=== PATIENT | female | born 1970 | race Caucasian/White ===

== ENCOUNTER 2017-01-11 11:23 | Emergency (ER) | payer OTHER ==
[2017-01-11 11:31] VITALS: BP 162/78
--- NOTE | 2017-01-11 12:16 | RAD ---
HISTORY: Subacute trauma, right wrist pain COMPARISONS: None VIEWS: 3, Frontal, lateral, and oblique views of the right wrist FINDINGS: BONE DENSITY: Normal. BONES: There is a transverse nondisplaced fracture of the distal radial metaphysis. There is a minimally displaced fracture of the styloid process of the ulna. JOINTS: There is no arthropathy. ALIGNMENT: There is no dislocation. SOFT TISSUES: Unremarkable. OTHER FINDINGS: None. IMPRESSION: NONDISPLACED FRACTURE OF THE DISTAL RADIAL METAPHYSIS. MINIMALLY DISPLACED FRACTURE OF THE STYLOID PROCESS OF THE ULNA.
[2017-01-11] MEDS ORDERED: HYDROcodone/ACETAMIN 5-325 MG* 1 TAB PO ONE (13:32)
--- NOTE | 2017-01-11 13:50 | UC ---
Progress - Progress Note Progress Note: PHYSICIAN PROCEDURE NOTE: SUGAR TONG SPLINT APPLICATION for right wrist distal radius and ulnar styloid fracture 3 weeks old. Cast padding applied. Ortho- glass 4 in. preformed splint material used to form sugar tong splint. Neurovasc intact before and after splint application. Pt tolerated procedure well.
--- NOTE | 2017-01-11 15:06 | UC ---
Missael Dan Angela, scribed for Renée Gonzalez, on 01/11/17 at 1226 . Upper Extremity HPI <ValdezEvelyn Rudy - Last Filed: 01/11/17 13:50> - HPI Summary HPI Summary: This pt is a 46 y/o female presenting to [facility] c/o right wrist pain s/p tripping over a puppy 3 weeks ago. Pt reports that the back steps where she lives are broken. She was bringing a puppy inside but since the steps are broken she fell and extended her right arm to catch herself. Pt states initially her right wrist was swollen and had a bruise. She notes she has been taking Advil for the pain. Pt takes medications for a thyroid disorder. pmhx hypothyroid, ra. - History of Current Complaint Hx Obtained From: Patient Hx Last Menstrual Period: depo Onset/Duration: Lasting Weeks, Still Present Severity Currently: Severe Pain Intensity: 8 Pain Scale Used: 0-10 Numeric Location Of Pain: Is Discrete @ - right wrist Alleviating Factor(s): Nothing Associated Signs And Symptoms: Positive: Swelling, Bruising. Negative: Fever, Weakness, Numbness/Tingling <Renée Gonzalez - Last Filed: 01/11/17 15:06> - History of Current Complaint Chief Complaint: UCUpperExtremity Stated Complaint: WRIST INJURY Time Seen by Provider: 01/11/17 11:45 - Allergies/Home Medications Allergies/Adverse Reactions: Allergies Allergy/AdvReac Type Severity Reaction Status Date / Time No Known Allergies Allergy Verified 01/11/17 11:31 Home Medications: Home Medications Cyanocobalamin [Vitamin B-12] 2,500 mcg PO DAILY 01/11/17 [History Confirmed ] Fluticasone NASAL * [Flonase *] 2 spr NASAL DAILY 01/11/17 [History Confirmed ] PMH/Surg Hx/FS Hx/Imm Hx - Additional Past Medical History Additional PMH: RA Endocrine History: Thyroid Disease Other Cardiovascular History: DENIES: HTN - Surgical History Surgical History: Yes Surgery Procedure, Year, and Place: appendectomy. c section - Family History Known Family History: Positive: Diabetes - mother, Other - Brother: thyroid disorder. Sister: from [place]. - Social History Alcohol Use: None Substance Use Type: None Smoking Status (MU): Heavy Every Day Tobacco Smoker Amount Used/How Often: 1 PPD Household Exposure Type: Cigarettes Cessation Counseling: Patient Advised to Stop <Renée Gonzalez - Last Filed: 01/11/17 15:06> Review of Systems Constitutional: Negative Skin: Negative Eyes: Negative ENT: Negative Respiratory: Negative Cardiovascular: Negative Gastrointestinal: Negative Genitourinary: Negative Motor: Negative Neurovascular: Negative Musculoskeletal: Decreased ROM - right wrist, Other: - right wrist pain Neurological: Negative All Other Systems Reviewed And Are Negative: Yes <Renée Gonzalez - Last Filed: 01/11/17 15:06> Physical Exam Vital Signs: Initial Vital Signs Temp 97.9 F 01/11/17 11:27 Pulse 83 01/11/17 11:27 Resp 18 01/11/17 11:27 BP 162/78 01/11/17 11:27 Pulse Ox 100 01/11/17 11:27 <Evelyn Kellogg - Last Filed: 01/11/17 13:50> Triage Information Reviewed: Yes Appearance: Well-Appearing, No Pain Distress, Well-Nourished Vital Signs: Initial Vital Signs Temp 97.9 F 01/11/17 11:27 Pulse 83 01/11/17 11:27 Resp 18 01/11/17 11:27 BP 162/78 01/11/17 11:27 Pulse Ox 100 01/11/17 11:27 Vital Signs Reviewed: Yes Eyes: Positive: Conjunctiva Clear. Negative: Discharge ENT: Positive: Hearing grossly normal, Other: - normal voice. Negative: Muffled /hoarse voice Neck exam: Normal Neck: Positive: Supple Respiratory: Positive: Lungs clear, Normal breath sounds, No respiratory distress, No accessory muscle use Cardiovascular: Positive: RRR, No Murmur Musculoskeletal: Positive: Other: - RUE: Tenderness at the distal radius/ulna and snuff box Neurological: Positive: Alert, Muscle Tone Normal Psychological Exam: Normal Psychological: Positive: Age Appropriate Behavior Skin Exam: Normal Skin: Positive: Other - warm, dry, normal color <Renée Gonzalez - Last Filed: 01/11/17 15:06> Procedures - Splinting Location: see separate progress note. <Evelyn Kellogg - Last Filed: 01/11/17 13:50> Diagnostics - Radiology Right wrist XR Xray Interpretation: Positive (See Comments) - IMPRESSION: Nondisplaced fracture of the distal radial metaphysis. Minimally displaced fracture of the styloid process of the ulna. ED physician has reviewed this radiology report and agrees. Radiology Interpretation Completed By: Radiologist <Renée Gonzalez - Last Filed: 01/11/17 15:06> Upper Extremity Course/Dx - Course Course Of Treatment: Medications reviewed this visit. The patient has been encouraged to quit smoking. High blood pressure noted likely due to pts condition. - Differential Dx/Diagnosis Provider Diagnoses: Right wrist fracture. Elevated blood pressure without diagnosis of hypertension. <Renée Gonzalez - Last Filed: 01/11/17 15:06> Discharge <Evelyn Kellogg - Last Filed: 01/11/17 13:50> <Renée Gonzalez - Last Filed: 01/11/17 15:06> - Discharge Plan Condition: Stable Disposition: HOME Prescriptions: HYDROcodone/ACETAMIN 5-325 MG* [Effort 5-325 TAB*] 1 tab PO Q6H PRN #14 tab MDD 4 TABS PRN Reason: Pain Patient Education Materials: Wrist Fracture in Adults (ED), Splint Care (ED) Referrals: Kisha Valdez DO [Primary Care Provider] - aMriya Jensen MD [Medical Doctor] - (within the next 4 days) Additional Instructions: ORAL NARCOTIC MEDICATION: You have been given a prescription for pain control. This medication is a narcotic. It's best taken with food, as nausea can result if taken on an empty stomach. Don't operate machinery or drive within six hours of taking this medication. Do not combine this medicine with alcohol, or with any medication which can cause sedation (such as cold tablets or sleeping pills) unless you get permission from the physician. Narcotics tend to cause constipation. If possible, drink plenty of fluids and eat a diet high in fiber and fruits. WE WISH YOU WELL. PLEASE TAKE GOOD CARE OF YOUR SELF. Your blood pressure was elevated at this visit. That does not mean you have hypertension, it is probably due to your current condition. Please follow up with your primary care provider. The documentation as recorded by the Missael jackson Angela accurately reflects the service I personally performed and the decisions made by , Renée Gonzalez DO.
== END 2017-01-11 13:45 | disposition home or self-care (01) ==
LOC: UCEAST 11:23
DX: S62.101A Fracture of unspecified carpal bone, right wrist, initial encounter for closed fracture (principal); F17.210 Nicotine dependence, cigarettes, uncomplicated; E07.9 Disorder of thyroid, unspecified; W01.0XXA Fall on same level from slipping, tripping and stumbling without subsequent striking against object, initial encounter; Y92.9 Unspecified place or not applicable; R03.0 Elevated blood-pressure reading, without diagnosis of hypertension
CPT/HCPCS: 99212; G0463

== ENCOUNTER 2019-06-07 10:19 | Emergency (ER) | payer MEDICAID ==
[2019-06-07 10:27] VITALS: BP 185/111
[2019-06-07] MEDS ORDERED: HYDROcodone/ACETAMIN 5-325 MG* 1 TAB PO ONE (11:36)
--- NOTE | 2019-06-07 11:41 | ED ---
Upper Extremity Pain - HPI Summary HPI Summary: 49 year old female presents with left wrist injury. She fell down a flight of stairs. She denies any head injury. No loss conscious. No dizziness. No neck pain. Did have rib pain but that is resolved. Denies any hip pain. no pain over hip but has pain over her wrist. States that it feels like her left wrist is broken. She is right-handed. has broke her right wrist before. Has no medical conditions. - History of Current Complaint Chief Complaint: EDExtremityUpper Stated Complaint: FALL WRSIT INJURY Time Seen by Provider: 06/07/19 11:13 Hx Last Menstrual Period: depo - Allergies/Home Medications Allergies/Adverse Reactions: Allergies Allergy/AdvReac Type Severity Reaction Status Date / Time Opioids - Morphine Analogues Allergy Nausea Verified 06/07/19 10:28 Home Medications: Home Medications Levothyroxine TAB* [Synthroid 100 MCG TAB*] 137 mcg PO DAILY 05/07/14 [History Confirmed 06/07/19] Cyanocobalamin TAB* [Vitamin B12 TAB*] 1,500 mcg PO DAILY 06/07/19 [History Confirmed 06/07/19] Escitalopram * [Lexapro 10 mg (NF)] 10 mg PO DAILY 06/07/19 [History Confirmed 06/07/19] Ondansetron ODT TAB* [Zofran 4 MG Odt TAB*] 4 mg PO Q6H PRN #20 tab.odt [Rx] oxyCODONE/Acetamin 5/325 MG* [Percocet 5/325 TAB*] 1 tab PO Q6H PRN #16 tab MDD 4 06/07/19 [Rx] PMH/Surg Hx/FS Hx/Imm Hx Endocrine/Hematology History: Denies: Hx Diabetes, Hx Thyroid Disease Cardiovascular History: Denies: Hx Hypertension Respiratory History: Denies: Hx Asthma, Hx Chronic Obstructive Pulmonary Disease (COPD) GI History: Denies: Hx Ulcer - Surgical History Surgery Procedure, Year, and Place: appendectomy. c section Infectious Disease History: No Infectious Disease History: Denies: Hx Clostridium Difficile, Hx Hepatitis, Hx Human Immunodeficiency Virus (HIV), Hx of Known/Suspected MRSA, Hx Shingles, Hx Tuberculosis, Hx Known/ Suspected VRE, Hx Known/Suspected VRSA, History Other Infectious Disease, Traveled Outside the [place] in Last 30 Days - Family History Known Family History: Positive: Diabetes - mother, Other - Brother: thyroid disorder. Sister: from [place]. - Social History Alcohol Use: Weekly Substance Use Type: Reports: None Smoking Status (MU): Heavy Every Day Tobacco Smoker Amount Used/How Often: 1 PPD Review of Systems Negative: Fever Negative: Chest Pain Negative: Shortness Of Breath Positive: Myalgia - left wrist pain All Other Systems Reviewed And Are Negative: Yes Physical Exam Triage Information Reviewed: Yes Vital Signs On Initial Exam: Initial Vitals Temp Pulse Resp BP Pulse Ox 98.2 F 86 16 185/111 94 06/07/19 10:20 06/07/19 10:20 06/07/19 10:20 06/07/19 10:20 06/07/19 10:20 Vital Signs Reviewed: Yes Appearance: Positive: Well-Appearing Skin: Positive: Other - ecchymosis to left hip and left ribs Eyes: Positive: Normal, EOMI, HENRY, Conjunctiva Clear ENT: Positive: Pharynx normal Neck: Positive: Other: - nontender neck, full ROM neck Respiratory/Lung Sounds: Positive: Clear to Auscultation, Breath Sounds Present , Other - nontender rib wall Cardiovascular: Positive: Normal, RRR Abdomen Description: Positive: Nontender, Soft Bowel Sounds: Positive: Present Musculoskeletal: Positive: Strength/ROM Intact - legs, Limited @ - left wrist, Other - good pulses Neurological: Positive: Normal Psychiatric: Positive: Normal Procedures - Sedation Patient Received Moderate/Deep Sedation with Procedure: No - Splinting wrist Location: left wrist Hand-Made Type: orthoglass Splint: sugar-tong Pre-Proc Neuro Vasc Exam: normal Post-Proc Neuro Vasc Exam: normal Splint Applied by Provider: Cherrie Ashley Wallstr - Vital Signs Vital Signs Temp Pulse Resp BP Pulse Ox 06/07/19 10:20 98.2 F 86 16 185/111 94 - Laboratory Lab Statement: Any lab studies that have been ordered have been reviewed, and results considered in the medical decision making process. - Radiology wrist Radiology Interpretation Completed By: Radiologist Summary of Radiographic Findings: IMPRESSION: Distal radial and ulnar styloid process fractures as above Course/Dx - Course Course Of Treatment: 49 year old female presents with left wrist injury. She fell down a flight of stairs. She denies any head injury. No loss conscious. No dizziness. No neck pain. Did have rib pain but that is resolved. Denies any hip pain. no pain over hip but has pain over her wrist. States that it feels like her left wrist is broken. She is right-handed. has broke her right wrist before. Has no medical conditions. On exam tenderness over left wrist. Ecchymosis noted to area. Neurovascular intact. X-ray shows radius and ulna fracture. Placed in a sugar tong splint. told follow up with ortho. Patient understands and agrees with the plan. - Diagnoses Differential Diagnosis/HQI/PQRI: Positive: Fracture (Closed), Strain, Sprain Provider Diagnoses: Left wrist fracture Discharge ED - Sign-Out/Discharge Documenting (check all that apply): Patient Departure - Discharge Plan Condition: Good Disposition: HOME Prescriptions: Ondansetron ODT TAB* [Zofran 4 MG Odt TAB*] 4 mg PO Q6H PRN #20 tab.odt PRN Reason: Nausea oxyCODONE/Acetamin 5/325 MG* [Percocet 5/325 TAB*] 1 tab PO Q6H PRN #16 tab MDD 4 PRN Reason: Pain - Severe Patient Education Materials: Wrist Fracture in Adults (ED) Referrals: Kisha Valdez DO [Primary Care Provider] - Erika Villarreal MD [Medical Doctor] - Additional Instructions: Keep elbow in sling as needed Keep splint on area and keep dry Call ortho office tomorrow to set up appointment for follow up Use ibuprofen for pain every 6 hours and use percocet for breakthrough pain every 6 hours take zofran every 6 hours for nausea Ice, elevate Return to ED if develop any new or worsening symptoms - Billing Disposition and Condition Condition: GOOD Disposition: Home - Attestation Statements Provider Attestation: I was available for consultation for this patient. I did not evaluate the patient or participate in any medical decision making or disposition decisions unless I am specifically named in the chart as having consulted on the patient. If I have consulted on the patient, please see my own ED note on the patient encounter. Winifred Vega MD
[2019-06-07] MEDS ORDERED: oxyCODONE/Acetamin 5/325 MG* TAB PO ONE (12:05)
[2019-06-07] MEDS ORDERED: Ondansetron TAB* 4 MG PO ONE (12:05)
== END 2019-06-07 13:00 | disposition home or self-care (01) ==
LOC: ED 10:19
DX: S52.502A Unspecified fracture of the lower end of left radius, initial encounter for closed fracture (principal); S52.612A Displaced fracture of left ulna styloid process, initial encounter for closed fracture; W10.9XXA Fall (on) (from) unspecified stairs and steps, initial encounter; Y92.9 Unspecified place or not applicable; E03.9 Hypothyroidism, unspecified; F17.200 Nicotine dependence, unspecified, uncomplicated; Z90.89 Acquired absence of other organs; Z79.890 Hormone replacement therapy; Z79.899 Other long term (current) drug therapy; Z88.5 Allergy status to narcotic agent
CPT/HCPCS: 99282